=== PATIENT | male | born 1965 | race Caucasian/White ===

== ENCOUNTER 2023-07-01 18:26 | Inpatient (IN) | payer BC ==
[2023-07-01] MEDS ORDERED: levETIRAcetam 500 MG/5 ML INJECTION VIAL IVPB ONE (19:55)
[2023-07-01] MEDS ORDERED: diazePAM CARPU-JECT 10 MG/2 ML DISP.SYRIN ONE (19:55)
[2023-07-01] MEDS: levETIRAcetam 500 MG/5 ML INJECTION VIAL IVPB ONE (20:00)
[2023-07-01] MEDS: diazePAM CARPU-JECT 10 MG/2 ML DISP.SYRIN IVPUSH ONE (20:00)
[2023-07-01 20:25] LABS: VENOUS BASE EXCESS -18.9 mmol/L (-2-2); VENOUS PCO2 45.5 mmHg (38-52)
[2023-07-01 20:27] LABS: VENOUS PH 7.027 (7.310-7.410)
[2023-07-01 20:41] LABS: BASO % 1.1 % (0-2.0); EOS % 0.9 % (0-4.5); HEMATOCRIT 41.8 % (35.4-49); HEMOGLOBIN 13.4 GM/dL (11.7-16.9); LYMPH % 18.9 % (8-40); MCH 30.6 pg (25.7-33.7); MCHC 32.2 g/dl (32.0-35.9); MEAN PLT VOLUME 8.5 fl (7.5-11.1); MONO % 10.8 % (3.8-10.2); NEUT % 68.3 % (42.8-82.8); PLATELET COUNT 123 10^3/uL (134-434); RDW 17.1 % (11.9-15.9); WHITE BLOOD COUNT 9.5 K/mm3 (4.0-10.0)
[2023-07-01] MEDS ORDERED: LACTATED RINGERS SOLUTION 1000 ML INFUS.BAG IV ONE (20:43)
[2023-07-01 20:44] LABS: POTASSIUM 3.7 mmol/L (3.5-5.1)
[2023-07-01 20:47] LABS: ALBUMIN 4.3 g/dl (3.4-5.0); BLOOD UREA NITROGEN 11.3 mg/dL (7-18); CALCIUM 9.1 mg/dL (8.5-10.1)
[2023-07-01 20:50] LABS: CREATININE 1.1 mg/dL (0.55-1.3)
[2023-07-01 20:51] LABS: BILIRUBIN,TOTAL 0.6 mg/dL (0.2-1); INR 0.99 (0.83-1.09); PROTHROMBIN TIME (PATIENT) 11.5 SEC (9.7-13.0)
[2023-07-01 20:52] LABS: MAGNESIUM 2.8 mg/dL (1.8-2.4); TOT PROT 8.4 g/dl (6.4-8.2)
[2023-07-01 20:53] LABS: ACTIVATED PTT 43.2 SECONDS (25.2-36.5)
[2023-07-01] MEDS: SODIUM CHLORIDE 0.9% 500 ML INFUS.BAG IV ONE (20:54)
[2023-07-01 21:06] LABS: LACTIC ACID 16.7 mmol/L (0.4-2.0)
[2023-07-01 22:58] LABS: URINE APPEARANCE Error; URINE BILIRUBIN NEGATIVE (NEGATIVE); URINE COLOR YELLOW; URINE GLUCOSE (UA) NEGATIVE (NEGATIVE); URINE KETONE NEGATIVE (NEGATIVE); URINE LEUK ESTERASE NEGATIVE (NEGATIVE); URINE NITRITE NEGATIVE (NEGATIVE); URINE PROTEIN NEGATIVE (NEGATIVE)
[2023-07-01] MEDS: THIAMINE HCL 200 MG/2 ML VIAL IVPB SCH (23:40)
[2023-07-01 23:53] LABS: COCAINE, UR NEGATIVE (NEGATIVE); METHADONE, UR NEGATIVE (NEGATIVE); PHENCYCLIDINE,URINE NEGATIVE (NEGATIVE); URINE BENZODIAZEPINES NEGATIVE (NEGATIVE)
[2023-07-01 23:54] LABS: OPIATES, URI NEGATIVE (NEGATIVE); URINE BARBITURATES NEGATIVE (NEGATIVE)
[2023-07-02] MEDS ORDERED: MIDAZOLAM HCL 5 MG/1 ML Single Dose Vial ONE (00:04)
[2023-07-02] MEDS: MIDAZOLAM HCL 10 MG/10 ML VIAL IVPUSH PRN (00:05)
[2023-07-02 00:20] LABS: URINE AMPHETAMINES NEGATIVE (NEGATIVE)
[2023-07-02] MEDS ORDERED: ONDANSETRON 4 MG/2 ML VIAL IVPB PRN ×3 (00:33→20:58)
[2023-07-02] MEDS: DEXMEDETOMIDINE PREMIX 400 MCG/100 ML BAG IVPB SCH (00:39)
[2023-07-02 01:49] VITALS: BMI 27.5
[2023-07-02] MEDS ORDERED: diazePAM CARPU-JECT 10 MG/2 ML DISP.SYRIN IVPUSH PRN (05:34)
[2023-07-02] MEDS: HEPARIN NA (PORCINE) 5,000 UNITS/ML 1ML VIAL SQ SCH ×2 (05:54→22:47)
[2023-07-02 07:07] LABS: BASO % 1.3 % (0-2.0); EOS % 3.3 % (0-4.5); HEMATOCRIT 36.5 % (35.4-49); HEMOGLOBIN 12.2 GM/dL (11.7-16.9); LYMPH % 18.8 % (8-40); MCH 30.6 pg (25.7-33.7); MCHC 33.4 g/dl (32.0-35.9); MEAN CELL VOLUME 91.6 fl (80-96); MEAN PLT VOLUME 8.1 fl (7.5-11.1); MONO % 12.7 % (3.8-10.2); NEUT % 63.9 % (42.8-82.8); PLATELET COUNT 98 10^3/uL (134-434); RBC 3.98 M/mm3 (4.00-5.60); RDW 16.5 % (11.9-15.9); WHITE BLOOD COUNT 3.8 K/mm3 (4.0-10.0)
[2023-07-02] MEDS ORDERED: chlordiazePOXIDE HCL 10 MG CAPSULE PO PRN ×3 (07:21)
[2023-07-02] MEDS ORDERED: chlordiazePOXIDE HCL 25 MG CAPSULE PO PRN ×4 (07:21)
[2023-07-02] MEDS ORDERED: LACTATED RINGERS SOLUTION 1,000 ML/1,000 ML INFUS.BAG IV STA (07:27)
[2023-07-02 07:33] LABS: CALCIUM 8.4 mg/dL (8.5-10.1)
[2023-07-02 07:36] LABS: ALBUMIN 3.4 g/dl (3.4-5.0); MAGNESIUM 2.7 mg/dL (1.8-2.4)
[2023-07-02 07:37] LABS: BLOOD UREA NITROGEN 11.1 mg/dL (7-18)
[2023-07-02 07:40] LABS: PHOSPHOROUS 3.6 mg/dL (2.5-4.9)
[2023-07-02 07:41] LABS: BILIRUBIN,TOTAL 0.9 mg/dL (0.2-1); CREATININE 0.6 mg/dL (0.55-1.3)
[2023-07-02 07:42] LABS: TOT PROT 6.9 g/dl (6.4-8.2)
[2023-07-02] MEDS ORDERED: PANTOPRAZOLE SODIUM 40 MG VIAL IVPUSH SCH (10:00)
[2023-07-02] MEDS: LACTATED RINGERS SOLUTION 1000 ML INFUS.BAG IV ONE (10:04)
[2023-07-02] MEDS: MUPIROCIN 2% TOPICAL OINTMENT FOR DECOLONIZATION NS SCH (10:05)
[2023-07-02] MEDS: FOLIC ACID 1 MG TABLET (FP) PO SCH (10:05)
[2023-07-02] MEDS: PANTOPRAZOLE 40 MG TABLET PO SCH (10:07)
[2023-07-02] MEDS: chlordiazePOXIDE HCL 25 MG CAPSULE PO PRN (15:02)
[2023-07-02] MEDS: LACTATED RINGERS SOLUTION 1,000 ML/1,000 ML INFUS.BAG IV SCH (15:06)
[2023-07-02] MEDS ORDERED: CHLORHEXIDINE GLUCONATE 4% CLEANSER FOR DECOLONIZATION TP SCH ×2 (22:00)
[2023-07-02] MEDS: LORazepam 2 MG/ML SDV VIAL IVPUSH SCH (22:46)
[2023-07-03 09:22] LABS: HEMATOCRIT 37.7 % (35.4-49); HEMOGLOBIN 12.8 GM/dL (11.7-16.9); MEAN CELL VOLUME 91.1 fl (80-96); MEAN PLT VOLUME 8.9 fl (7.5-11.1); PLATELET COUNT 91 10^3/uL (134-434); RBC 4.14 M/mm3 (4.00-5.60); RDW 16.2 % (11.9-15.9); WHITE BLOOD COUNT 5.1 K/mm3 (4.0-10.0)
[2023-07-03 09:40] LABS: POTASSIUM 3.8 mmol/L (3.5-5.1)
[2023-07-03 09:42] LABS: CALCIUM 8.4 mg/dL (8.5-10.1)
[2023-07-03 09:47] LABS: BLOOD UREA NITROGEN 6.3 mg/dL (7-18); CREATININE 0.7 mg/dL (0.55-1.3)
[2023-07-03] MEDS: THIAMINE HCL 100 MG TABLET (FP) PO SCH (09:50)
[2023-07-03] MEDS: LORazepam 2 MG/ML SDV VIAL IVPUSH SCH (09:50)
[2023-07-03] MEDS: FOLIC ACID 1 MG TABLET (FP) PO SCH (09:50)
[2023-07-03] MEDS: PANTOPRAZOLE 40 MG TABLET PO SCH (09:50)
[2023-07-03] MEDS: LORazepam 0.5 MG TABLET PO ONE (15:50)
[2023-07-03] MEDS ORDERED: chlordiazePOXIDE HCL 10 MG CAPSULE PO PRN (17:03)
[2023-07-03 22:42] VITALS: RESP 20
[2023-07-04 08:30] LABS: EOS % 5.7 % (0-4.5); HEMATOCRIT 39.1 % (35.4-49); HEMOGLOBIN 12.9 GM/dL (11.7-16.9); MCH 30.5 pg (25.7-33.7); MCHC 32.9 g/dl (32.0-35.9); MEAN CELL VOLUME 92.6 fl (80-96); MONO % 10.4 % (3.8-10.2); NEUT % 63.9 % (42.8-82.8); PLATELET COUNT 108 10^3/uL (134-434); RBC 4.23 M/mm3 (4.00-5.60); RDW 16.2 % (11.9-15.9); WHITE BLOOD COUNT 5.1 K/mm3 (4.0-10.0)
[2023-07-04 09:05] LABS: CALCIUM 8.7 mg/dL (8.5-10.1)
[2023-07-04 09:06] LABS: BLOOD UREA NITROGEN 6.4 mg/dL (7-18)
[2023-07-04 09:09] LABS: CREATININE 0.7 mg/dL (0.55-1.3)
[2023-07-04] MEDS ORDERED: LORazepam 2 MG/ML SDV VIAL IVPUSH PRN (09:19)
[2023-07-05] MEDS ORDERED: chlordiazePOXIDE HCL 10 MG CAPSULE PO PRN
[2023-07-05 06:00] VITALS: BP 142/77; PULSE 67; TEMP 97.7
[2023-07-05 09:50] LABS: BASO % 1.1 % (0-2.0); EOS % 6.1 % (0-4.5); HEMATOCRIT 39.8 % (35.4-49); HEMOGLOBIN 13.7 GM/dL (11.7-16.9); LYMPH % 20.4 % (8-40); MCH 31.6 pg (25.7-33.7); MCHC 34.3 g/dl (32.0-35.9); MEAN PLT VOLUME 9.1 fl (7.5-11.1); MONO % 11.3 % (3.8-10.2); NEUT % 61.1 % (42.8-82.8); PLATELET COUNT 130 10^3/uL (134-434); RBC 4.33 M/mm3 (4.00-5.60); RDW 16.3 % (11.9-15.9)
[2023-07-05 10:39] LABS: POTASSIUM 3.9 mmol/L (3.5-5.1)
[2023-07-05 10:42] LABS: BLOOD UREA NITROGEN 9.6 mg/dL (7-18); CALCIUM 9.4 mg/dL (8.5-10.1)
[2023-07-05 10:43] LABS: ALBUMIN 3.6 g/dl (3.4-5.0); MAGNESIUM 2.6 mg/dL (1.8-2.4)
[2023-07-05 10:46] LABS: CREATININE 0.8 mg/dL (0.55-1.3); PHOSPHOROUS 3.8 mg/dL (2.5-4.9)
[2023-07-05 10:47] LABS: TOT PROT 7.2 g/dl (6.4-8.2)
== END 2023-07-05 11:37 | disposition home or self-care (01) | DRG 896 ==
LOC: JER 18:26 → JERBED 22:23 → JICU 07-02 00:02 → J8W 07-02 20:33
PROVIDERS: ADMIT Internal Medicine Pulmonary Disease; ATTEND Nurse Practitioner Acute Care
DX: F10.130 Alcohol abuse with withdrawal, uncomplicated (principal); U07.1 COVID-19; E87.20 Acidosis, unspecified; M62.82 Rhabdomyolysis; R55 Syncope and collapse; R56.9 Unspecified convulsions
CPT/HCPCS: 0241U-QW; 36415; 70450-TC; 71045-TC-FY; 80048; 80053; 80307; 81003; 82140; 82550; 82553; 82803; 82962; 83605; 83735; 84100; 85025; 85027; 85610; 85730; 87086; 93005; 93010; 97116-GP; 97161-GP; 99285-25; J1644